=== PATIENT | female | born 1970 | race Caucasian/White ===

== ENCOUNTER 2018-04-04 23:20 | Emergency (ER) | payer SELFPAY ==
[~2018-04-04] VITALS: Ht 167.6 cm; Wt 59.0 kg
[2018-04-04 23:23] VITALS: BP 127/89
== END 2018-04-05 01:45 | disposition home or self-care (01) ==
LOC: ER 23:21
DX: F10.129 Alcohol abuse with intoxication, unspecified (principal); Y90.9 Presence of alcohol in blood, level not specified; Z59.0 Homelessness
CPT/HCPCS: 99283; Z7610

== ENCOUNTER 2019-04-14 12:28 | Emergency (ER) | payer MEDICAID ==
[~2019-04-14] VITALS: Ht 167.6 cm; Wt 70.8 kg
[2019-04-14] MEDS ORDERED: HALOPERIDOL LACTATE INJ 5 MG/ML VIAL IM ONE (12:30)
[2019-04-14] MEDS ORDERED: LORAZEPAM INJ 2 MG/ML VIAL IM ONE (12:30)
[2019-04-14] MEDS ORDERED: LORAZEPAM INJ 2 MG/ML VIAL ONE (12:31)
[2019-04-14] MEDS ORDERED: HALOPERIDOL LACTATE INJ 5 MG/ML VIAL ONE (12:31)
--- NOTE | 2019-04-14 12:32 | NUR ---
PT BIBRA FROM HOME FOR ETOH AND AGITATION; PT TO BED 14, -SOB, PT VERBALLY RESPONSIVE, PT ON MONITOR. VSS. PENDING MD FINLEY
--- NOTE | 2019-04-14 18:10 | NUR ---
VITAL SIGNS WITHIN NORMAL LIMITS.
--- NOTE | 2019-04-14 19:55 | NUR ---
Patient is resting comfortably in bed with eyes closed. Easily aroused. VSS
--- NOTE | 2019-04-14 20:31 | NUR ---
VITAL SIGNS UPDATED.
[2019-04-15 00:27] VITALS: BP 123/85
--- NOTE | 2019-04-15 02:06 | NUR ---
PT VERBALIZING "I WANT TO LEAVE PLEASE" PATIENT WAS ASKED TO AMBULATE TO RESTROOM AND BACK. PT GAIT STEADY, -DIZZY. PT AOX4. VSS. -SOB NOTED. -N/V. AWARE.
--- NOTE | 2019-04-15 02:07 | NUR ---
PATIENT GIVEN CLOTHING, SOCKS AND FOOD ON WAY OUT.
== END 2019-04-15 02:19 | disposition home or self-care (01) ==
LOC: ER 12:29
DX: F10.129 Alcohol abuse with intoxication, unspecified (principal); R51 Headache; Y90.8 Blood alcohol level of 240 mg/100 ml or more
CPT/HCPCS: 36415; 70450; 80307; 96372 ×2; 99284; J1630; J2060; J7030 ×2; G0480